=== PATIENT | male | born 1985 | race Caucasian/White ===

== ENCOUNTER → 2020-11-12 | Outpatient (CLI) | payer BC, OTHER ==
[~2020-11-12] MED LIST: ACYCLOVIR; ADVAIRDISKUS; HYDROCODONE-AP1 EAC6 PO; LORTABELXR PO; MEDROLDOSEPACK PO; NORCO 5-325 TA1 EACH PO; PROTONIX 20 MG20 M1 PO; PROTONIX40 M4; PROVENTIL17 G1; SINGULAIR; SYMBICORT160 MCG/4. INH; ZANTAC 150MG T150 MG; ZOFRAN ODT4 MG PO; [UNRECOGNIZED DRUG - OTHER]
== END ==
LOC: M.NUC 12:28
PROVIDERS: ATTEND Family Medicine
DX: R10.11 Right upper quadrant pain (principal)